=== PATIENT | male | born 1985 | race Caucasian/White ===

== ENCOUNTER 2023-05-18 09:27 | Inpatient (IN) | payer BC ==
[~2023-05-18] VITALS: Ht 188 cm; Wt 101.5 kg
[2023-05-18 09:48] VITALS: PULSE 88; RESP 18; O2SAT 98
[2023-05-18] MEDS ORDERED: MORPHINE SULFATE 4 MG/ML SYR/VIAL IV ONE (10:00)
[2023-05-18] MEDS ORDERED: ONDANSETRON HCL 4 MG/2 ML VIAL IV ONE (10:00)
[2023-05-18 10:29] LABS: Basophils # (auto) 0 10 ^3/uL (0-0.2); Basophils % (auto) 0.1 % (0.0-2.0); Eosinophils # (auto) 0 10 ^3/uL (0-0.8); Hematocrit 45.3 % (41.0-53.0); Hemoglobin 15.5 g/dL (13.5-17.5); Lymphocytes # (auto) 0.7 10 ^3/uL (0.4-5.4); Lymphocytes % (auto) 4.8 % (10.0-50.0); Mean Corpuscular Hemoglobin 31.9 pg (28.0-32.0); Mean Corpuscular Hgb Conc. 34.2 g/dL (32.0-36.0); Mean Corpuscular Volume 93.3 fL (80.0-100.0); Monocytes # (auto) 0.9 10 ^3/uL (0-1.3); Monocytes % (auto) 6.9 % (0.0-12.0); Neutrophils # (auto) 11.9 10 ^3/uL (1.6-8.6); Neutrophils % (auto) 88.2 % (37.0-80.0); Nucleated Red Blood Cells % 0.2 %; Red Blood Cells 4.85 10^6/uL (4.5-5.90); Red Cell Distribution Width 12.6 % (11.8-14.3); White Blood Cell 13.5 10^3/uL (4.4-10.8)
[2023-05-18 11:04] LABS: Alanine Aminotransferase 63 U/L (7-40); Alkaline Phosphatase 66 U/L (46-116); Anion Gap 16 (5-15); Aspartate Aminotransferase 58 U/L (13-40); BUN/Creatinine Ratio 9.5 (10.0-20.0); Bilirubin, Total 1.1 mg/dL (0.2-1.0); Blood Urea Nitrogen 18 mg/dL (9-23); Calcium 10.6 mg/dL (8.5-10.1); Carbon Dioxide 18 mmol/L (20-30); Chloride 102 mmol/L (98-107); Glucose 106 mg/dL (74-106); Potassium 4.5 mmol/L (3.5-5.1); Sodium 136 mmol/L (136-145); Total Protein 7.2 g/dL (5.7-8.2)
[2023-05-18] MEDS ORDERED: cefTRIAXone 1GM/50ML D5W 50 ML IV ONE (11:30)
[2023-05-18] MEDS ORDERED: SODIUM CHLORIDE 0.9% 1,000 ML IV ONE ×2 (11:30)
[2023-05-18] MEDS ORDERED: metroNIDAZOLE 500MG/100ML 100 ML IV ONE (11:30)
[2023-05-18] MEDS ORDERED: HYDROmorphone HCL 2 MG/ML VL/or syr IV STA (13:20)
[2023-05-18] MEDS ORDERED: LORazepam 2MG/ML-1ML VIAL IV PRN (13:30)
[2023-05-18] MEDS ORDERED: ONDANSETRON HCL 4 MG/2 ML VIAL IV PRN (13:30)
[2023-05-18] MEDS ORDERED: DICYCLOMINE HCL (10MG/ML) 2 ML AMPULE IM ONE (13:30)
[2023-05-18] MEDS ORDERED: DOCUSATE SOD 100 MG CAP PO PRN (13:30)
[2023-05-18] MEDS ORDERED: PIPERACILLIN-TAZOB 3.375GM 100 ML IV ONE (13:45)
[2023-05-18] MEDS: PANTOPRAZOLE 40 MG/10 ML VIAL INJ IV SCH (13:48)
[2023-05-18] MEDS: SODIUM CHLORIDE 0.9% 1,000 ML IV SCH ×2 (13:56→21:50)
[2023-05-18] MEDS: FOLIC ACID 1 MG, MULTIPLE VITAMIN 10 ML, MAGNESIUM SULF SDV 50% 8 MEQ, THIAMINE INJ 100... INJ SCH ×5 (14:56)
[2023-05-18] MEDS: HYDROmorphone HCL 2 MG/ML VL/or syr IV PRN (20:49)
[2023-05-18] MEDS: PIPERACILLIN-TAZOB 3.375GM 100 ML IV SCH (21:57)
[2023-05-18 22:00] VITALS: BP 133/71; PULSE 71; RESP 18; TEMP 98.3; O2SAT 98
[2023-05-19] MEDS: HYDROmorphone HCL 2 MG/ML VL/or syr IV PRN ×4 (01:03→20:24)
[2023-05-19 05:00] VITALS: BP 128/78; PULSE 79; RESP 16; TEMP 97.5; O2SAT 96
[2023-05-19] MEDS: PIPERACILLIN-TAZOB 3.375GM 100 ML IV SCH ×3 (06:10→22:20)
[2023-05-19] MEDS: SODIUM CHLORIDE 0.9% 1,000 ML IV SCH ×2 (06:13→14:30)
[2023-05-19 06:17] LABS: Basophils # (auto) 0 10 ^3/uL (0-0.2); Basophils % (auto) 0.2 % (0.0-2.0); Eosinophils # (auto) 0 10 ^3/uL (0-0.8); Eosinophils % (auto) 0.3 % (0.0-7.0); Hematocrit 40.8 % (41.0-53.0); Hemoglobin 13.8 g/dL (13.5-17.5); Lymphocytes # (auto) 1.6 10 ^3/uL (0.4-5.4); Lymphocytes % (auto) 19.3 % (10.0-50.0); Mean Corpuscular Hgb Conc. 33.9 g/dL (32.0-36.0); Mean Corpuscular Volume 94.3 fL (80.0-100.0); Monocytes # (auto) 0.9 10 ^3/uL (0-1.3); Neutrophils # (auto) 5.7 10 ^3/uL (1.6-8.6); Neutrophils % (auto) 69.2 % (37.0-80.0); Red Blood Cells 4.33 10^6/uL (4.5-5.90); White Blood Cell 8.2 10^3/uL (4.4-10.8)
[2023-05-19 07:13] LABS: Alanine Aminotransferase 39 U/L (7-40); Albumin 4.1 g/dL (3.2-4.8); Alkaline Phosphatase 51 U/L (46-116); Anion Gap 4 (5-15); Aspartate Aminotransferase 25 U/L (13-40); BUN/Creatinine Ratio 9.2 (10.0-20.0); Bilirubin, Total 1.3 mg/dL (0.2-1.0); Blood Urea Nitrogen 13 mg/dL (9-23); Calcium 8.7 mg/dL (8.7-10.4); Carbon Dioxide 24 mmol/L (20-30); Chloride 109 mmol/L (98-107); Glucose 96 mg/dL (74-106); Magnesium 2.3 mg/dL (1.6-2.6); Potassium 4.4 mmol/L (3.5-5.1); Sodium 137 mmol/L (136-145); Total Protein 6.2 g/dL (5.7-8.2)
[2023-05-19 09:00] VITALS: BP 141/95; PULSE 61; RESP 21; TEMP 98.9; O2SAT 99
[2023-05-19] MEDS: PANTOPRAZOLE 40 MG/10 ML VIAL INJ IV SCH (11:33)
[2023-05-19 13:00] VITALS: BP 126/87; PULSE 89; RESP 16; TEMP 98.5; O2SAT 100
[2023-05-19 15:17] LABS: INR 1.02 (0.9-1.15); Prothrombin Time 10.9 sec (9.3-11.8)
[2023-05-19 15:18] LABS: Partial Thromboplastin Time 30.5 SEC (24.5-34.5)
[2023-05-19] MEDS ORDERED: LORazepam 2MG/ML-1ML VIAL IV ONE (16:15)
[2023-05-19] MEDS: FOLIC ACID 1 MG, MULTIPLE VITAMIN 10 ML, MAGNESIUM SULF SDV 50% 8 MEQ, THIAMINE INJ 100... INJ SCH ×5 (16:34)
[2023-05-19] MEDS ORDERED: HYDROmorphone HCL 2 MG/ML VL/or syr IV ONE (16:45)
[2023-05-19] MEDS ORDERED: diazePAM 2 MG TAB PO PRN (16:45)
[2023-05-19 16:50] VITALS: BP 162/89; PULSE 74; RESP 22; TEMP 98.2; O2SAT 99
[2023-05-19 22:00] VITALS: BP 122/78; PULSE 82; RESP 17; TEMP 98.2; O2SAT 93
[2023-05-20] MEDS: HYDROmorphone HCL 2 MG/ML VL/or syr IV PRN ×4 (01:16→20:21)
[2023-05-20] MEDS: SODIUM CHLORIDE 0.9% 1,000 ML IV SCH ×3 (03:57→15:30)
[2023-05-20 05:00] VITALS: BP 142/92; PULSE 83; RESP 18; TEMP 98; O2SAT 97
[2023-05-20] MEDS: PIPERACILLIN-TAZOB 3.375GM 100 ML IV SCH ×3 (05:17→21:26)
[2023-05-20 08:59] VITALS: BP 132/87; PULSE 79; RESP 21; TEMP 97.8; O2SAT 96
[2023-05-20] MEDS: LACTULOSE 20Gm/30ML SOLN PO SCH (09:37)
[2023-05-20] MEDS: PANTOPRAZOLE 40 MG/10 ML VIAL INJ IV SCH (09:37)
[2023-05-20 09:54] LABS: Basophils # (auto) 0 10 ^3/uL (0-0.2); Basophils % (auto) 0.5 % (0.0-2.0); Eosinophils # (auto) 0 10 ^3/uL (0-0.8); Eosinophils % (auto) 0.3 % (0.0-7.0); Hematocrit 40.5 % (41.0-53.0); Hemoglobin 13.6 g/dL (13.5-17.5); Lymphocytes # (auto) 1.3 10 ^3/uL (0.4-5.4); Lymphocytes % (auto) 14.6 % (10.0-50.0); Mean Corpuscular Hemoglobin 31.8 pg (28.0-32.0); Mean Corpuscular Hgb Conc. 33.5 g/dL (32.0-36.0); Mean Corpuscular Volume 94.9 fL (80.0-100.0); Monocytes # (auto) 1.1 10 ^3/uL (0-1.3); Monocytes % (auto) 11.5 % (0.0-12.0); Neutrophils # (auto) 6.7 10 ^3/uL (1.6-8.6); Neutrophils % (auto) 73.1 % (37.0-80.0); Red Blood Cells 4.27 10^6/uL (4.5-5.90); Red Cell Distribution Width 12.9 % (11.8-14.3); White Blood Cell 9.1 10^3/uL (4.4-10.8)
[2023-05-20 10:07] LABS: Chloride 106 mmol/L (98-107); Potassium 3.9 mmol/L (3.5-5.1); Sodium 137 mmol/L (136-145)
[2023-05-20 10:08] LABS: Anion Gap 7 (5-15); Carbon Dioxide 24 mmol/L (20-30)
[2023-05-20 10:09] LABS: Calcium 8.7 mg/dL (8.5-10.1)
[2023-05-20 10:14] LABS: BUN/Creatinine Ratio 7.4 (10.0-20.0); Blood Urea Nitrogen 7 mg/dL (9-23); Glucose 95 mg/dL (74-106)
[2023-05-20 13:00] VITALS: BP 137/88; PULSE 86; RESP 20; TEMP 97.7; O2SAT 96
[2023-05-20] MEDS: FOLIC ACID 1 MG, MULTIPLE VITAMIN 10 ML, MAGNESIUM SULF SDV 50% 8 MEQ, THIAMINE INJ 100... INJ SCH ×5 (14:18)
[2023-05-20 17:26] VITALS: BP 140/86; PULSE 97; RESP 20; TEMP 97.8; O2SAT 97
[2023-05-20 21:55] VITALS: BP 133/83; PULSE 84; RESP 17; TEMP 98.3; O2SAT 94
[2023-05-21 04:52] VITALS: BP 126/80; PULSE 90; RESP 17; TEMP 98.3; O2SAT 94
[2023-05-21] MEDS: SODIUM CHLORIDE 0.9% 1,000 ML IV SCH ×2 (05:18→08:10)
[2023-05-21] MEDS: PIPERACILLIN-TAZOB 3.375GM 100 ML IV SCH (05:23)
[2023-05-21 09:00] VITALS: BP 131/79; PULSE 79; RESP 18; TEMP 98.3; O2SAT 96
[2023-05-21] MEDS: PANTOPRAZOLE 40 MG/10 ML VIAL INJ IV SCH (09:10)
[2023-05-21] MEDS: LACTULOSE 20Gm/30ML SOLN PO SCH (09:13)
[2023-05-21] MEDS ORDERED: LEVO500T91 PO (09:18)
== END 2023-05-21 13:00 | disposition home or self-care (01) | DRG 914 ==
LOC: ER 09:27 → OVERFLOW 13:29 → CENTRAL 18:49
PROVIDERS: ADMIT Nurse Practitioner Family; ATTEND Family Medicine
DX: S39.91XA Unspecified injury of abdomen, initial encounter (principal); N17.9 Acute kidney failure, unspecified; R18.8 Other ascites; N30.91 Cystitis, unspecified with hematuria; K52.9 Noninfective gastroenteritis and colitis, unspecified; F10.10 Alcohol abuse, uncomplicated; E86.0 Dehydration; E83.52 Hypercalcemia; W01.0XXA Fall on same level from slipping, tripping and stumbling without subsequent striking against object, initial encounter; K76.0 Fatty (change of) liver, not elsewhere classified; R33.9 Retention of urine, unspecified; R74.01 Elevation of levels of liver transaminase levels; Z83.3 Family history of diabetes mellitus; Y93.89 Activity, other specified; Y92.098 Other place in other non-institutional residence as the place of occurrence of the external cause; Y99.8 Other external cause status
CPT/HCPCS: 36415; 74018; 74176; 76705; 76775; 76856; 80048; 80053; 80320; 83605; 83735; 85025; 85610; 85730; 86850; 86900; 86901; 87040; 96365; 96367; 96368; 96372; 96375; C9113; G0378; J0696; J2405; J2543; J3490

== ENCOUNTER 2023-05-22 13:51 | Inpatient (IN) | payer BC ==
[~2023-05-22] VITALS: Ht 188 cm; Wt 98.2 kg
[~2023-05-22 13:51] MED LIST: LEVO500T91 PO
[2023-05-22 15:16] LABS: Basophils # (auto) 0 10 ^3/uL (0-0.2); Basophils % (auto) 0.3 % (0.0-2.0); Eosinophils # (auto) 0.3 10 ^3/uL (0-0.8); Eosinophils % (auto) 2.6 % (0.0-7.0); Hematocrit 43.5 % (41.0-53.0); Hemoglobin 15.2 g/dL (13.5-17.5); Lymphocytes # (auto) 1.4 10 ^3/uL (0.4-5.4); Lymphocytes % (auto) 13.5 % (10.0-50.0); Mean Corpuscular Hemoglobin 32.4 pg (28.0-32.0); Mean Corpuscular Volume 92.5 fL (80.0-100.0); Monocytes % (auto) 9.5 % (0.0-12.0); Neutrophils # (auto) 7.9 10 ^3/uL (1.6-8.6); Neutrophils % (auto) 74.1 % (37.0-80.0); Nucleated Red Blood Cells % 0.1 %; Red Blood Cells 4.71 10^6/uL (4.5-5.90); Red Cell Distribution Width 12.6 % (11.8-14.3); White Blood Cell 10.6 10^3/uL (4.4-10.8)
[2023-05-22 15:30] LABS: INR 1.06 (0.9-1.15); Partial Thromboplastin Time 31.7 SEC (24.5-34.5); Prothrombin Time 11.1 sec (9.3-11.8)
[2023-05-22 15:34] LABS: Alanine Aminotransferase 28 U/L (7-40); Alkaline Phosphatase 50 U/L (46-116); Anion Gap 8 (5-15); Aspartate Aminotransferase 21 U/L (13-40); BUN/Creatinine Ratio 5.3 (10.0-20.0); Blood Urea Nitrogen 8 mg/dL (9-23); Calcium 10.1 mg/dL (8.7-10.4); Carbon Dioxide 24 mmol/L (20-30); Chloride 104 mmol/L (98-107); Glucose 105 mg/dL (74-106); Potassium 3.9 mmol/L (3.5-5.1); Sodium 136 mmol/L (136-145)
[2023-05-22 15:35] LABS: Albumin 4.8 g/dL (3.2-4.8); Total Protein 7.2 g/dL (5.7-8.2)
[2023-05-22] MEDS ORDERED: SODIUM CHLORIDE 0.9% 1,000 ML IV ONE (16:30)
[2023-05-22 17:15] LABS: Urine Bacteria FEW /hpf (None Seen); Urine Blood 3+ /uL (Negative); Urine Clarity Clear (Clear); Urine Color Yellow (Yellow); Urine Protein, UAD 2+ (Negative); Urine Specific Gravity 1.014 (1.001-1.035); Urine Urobilinogen Normal (Negative); Urine WBC 35 /hpf (0 - 3)
[2023-05-22] MEDS ORDERED: SODIUM CHLORIDE 0.9% 1,000 ML IV SCH (20:30)
[2023-05-22] MEDS ORDERED: DOCUSATE SOD 100 MG CAP PO PRN (20:30)
[2023-05-22] MEDS ORDERED: HYDROmorphone HCL 2 MG/ML VL/or syr IV PRN (20:30)
[2023-05-22] MEDS ORDERED: ONDANSETRON HCL 4 MG/2 ML VIAL IV PRN (20:30)
[2023-05-22 20:42] VITALS: BP 143/96; PULSE 77; RESP 20; O2SAT 100
[2023-05-22] MEDS ORDERED: levoFLOXacin 500MG 100 ML IV SCH (21:00)
== END 2023-05-23 05:25 | disposition left against medical advice (07) | DRG 392 ==
LOC: ER 13:51 → OVERFLOW 20:31
PROVIDERS: ADMIT Nurse Practitioner Family; ATTEND Nurse Practitioner Family
DX: R10.30 Lower abdominal pain, unspecified (principal); N17.9 Acute kidney failure, unspecified; R33.9 Retention of urine, unspecified; R31.9 Hematuria, unspecified; Z53.29 Procedure and treatment not carried out because of patient's decision for other reasons
CPT/HCPCS: 36415; 74176; 80053; 81001; 85025; 85610; 85730; G0378; J1956